=== PATIENT | female | born 1990 | race Caucasian/White ===

== ENCOUNTER 2020-06-09 07:50 | Outpatient (CLI) | payer OTHER ==
[~2020-06-09 07:50] MED LIST: FLONASE16 GM NASAL; GILTUSS TR TAB1 EACH PO; SEPTRA DS PO; ZITHROMAX TRI-500 MG PO; ZYRTEC10 MG PO
== END 2020-06-09 13:26 | disposition home or self-care (01) ==
LOC: LAB 07:50
DX: B34.8 Other viral infections of unspecified site (principal)

== ENCOUNTER 2021-09-05 09:14 | Outpatient (CLI) | payer OTHER | END 2021-09-05 09:18 | disposition home or self-care (01) | LOC: LAB 09:14 | PROVIDERS: ATTEND General Practice | DX: Z20.828 Contact with and (suspected) exposure to other viral communicable diseases (principal) ==

== ENCOUNTER → 2021-11-27 06:19 | Outpatient (CLI) | payer OTHER | END | disposition home or self-care (01) | LOC: LAB 06:19 | PROVIDERS: ATTEND General Practice | DX: E78.5 Hyperlipidemia, unspecified (principal); E55.9 Vitamin D deficiency, unspecified; N39.0 Urinary tract infection, site not specified; R42 Dizziness and giddiness; R10.2 Pelvic and perineal pain; R79.0 Abnormal level of blood mineral; Z00.00 Encounter for general adult medical examination without abnormal findings ==

== ENCOUNTER 2021-12-04 12:35 | Outpatient (CLI) | payer OTHER | END 2021-12-04 13:55 | disposition home or self-care (01) | LOC: SONOGRAMA 12:35 | PROVIDERS: ATTEND General Practice | DX: E03.9 Hypothyroidism, unspecified (principal); E03.1 Congenital hypothyroidism without goiter ==

== ENCOUNTER → 2022-01-09 06:35 | Outpatient (CLI) | payer OTHER | END | disposition home or self-care (01) | LOC: LAB 06:35 | PROVIDERS: ATTEND General Practice | DX: Z20.822 Contact with and (suspected) exposure to COVID-19 (principal) ==

== ENCOUNTER 2022-02-04 09:37 | Outpatient (CLI) | payer OTHER | END 2022-02-04 09:42 | disposition home or self-care (01) | LOC: LAB 09:37 | PROVIDERS: ATTEND Internal Medicine Endocrinology, Diabetes & Metabolism | DX: E03.8 Other specified hypothyroidism (principal) ==

== ENCOUNTER 2022-02-04 11:08 | Outpatient (CLI) | payer OTHER | END 2022-02-04 11:19 | disposition home or self-care (01) | LOC: RAD 11:08 | PROVIDERS: ATTEND General Practice | DX: M54.9 Dorsalgia, unspecified (principal) ==

== ENCOUNTER → 2022-05-08 07:10 | Outpatient (CLI) | payer OTHER | END | disposition home or self-care (01) | LOC: LAB 07:10 | PROVIDERS: ATTEND Internal Medicine Endocrinology, Diabetes & Metabolism | DX: E03.8 Other specified hypothyroidism (principal); E78.00 Pure hypercholesterolemia, unspecified ==

== ENCOUNTER 2022-11-06 10:55 | Outpatient (CLI) | payer OTHER | END 2022-11-06 10:58 | disposition home or self-care (01) | LOC: RAD 10:55 | PROVIDERS: ATTEND General Practice | DX: M25.561 Pain in right knee (principal) ==

== ENCOUNTER 2022-11-08 07:14 | Outpatient (CLI) | payer OTHER | END 2022-11-08 07:16 | disposition home or self-care (01) | LOC: LAB 07:14 | PROVIDERS: ATTEND Internal Medicine Endocrinology, Diabetes & Metabolism | DX: E13.8 Other specified diabetes mellitus with unspecified complications (principal); E78.00 Pure hypercholesterolemia, unspecified ==

== ENCOUNTER 2023-01-13 13:51 | Outpatient (CLI) | payer OTHER | END 2023-01-13 16:20 | disposition home or self-care (01) | LOC: RAD 13:51 | PROVIDERS: ATTEND General Practice | DX: M25.511 Pain in right shoulder (principal) ==

== ENCOUNTER 2023-05-16 08:33 | Outpatient (CLI) | payer OTHER | END 2023-05-16 08:37 | disposition home or self-care (01) | LOC: LAB 08:33 | PROVIDERS: ATTEND Internal Medicine Endocrinology, Diabetes & Metabolism | DX: E03.8 Other specified hypothyroidism (principal); E78.00 Pure hypercholesterolemia, unspecified; E11.65 Type 2 diabetes mellitus with hyperglycemia ==

== ENCOUNTER 2023-11-12 15:13 | Outpatient (CLI) | payer OTHER | END 2023-11-12 15:20 | disposition home or self-care (01) | LOC: RAD 15:13 | PROVIDERS: ATTEND Chiropractor Neurology | DX: M25.571 Pain in right ankle and joints of right foot (principal) ==

== ENCOUNTER 2023-11-14 08:19 | Outpatient (CLI) | payer OTHER ==
[2023-11-14 10:50] LABS: T4 FREE 0.98 NG/ML (0.76-1.46); TSH 1.1 uIU/mL (0.358-3.74)
== END 2023-11-14 08:20 | disposition home or self-care (01) ==
LOC: LAB 08:19
PROVIDERS: ATTEND Internal Medicine Endocrinology, Diabetes & Metabolism
DX: E03.8 Other specified hypothyroidism (principal)

== ENCOUNTER 2024-04-22 14:52 | Outpatient (CLI) | payer OTHER | END 2024-04-22 14:56 | disposition home or self-care (01) | LOC: SONOGRAMA 14:52 | PROVIDERS: ATTEND Internal Medicine Endocrinology, Diabetes & Metabolism | DX: E04.8 Other specified nontoxic goiter (principal) ==

== ENCOUNTER 2024-04-30 09:18 | Outpatient (CLI) | payer OTHER ==
[2024-04-30 12:30] LABS: ALBUMIN 4.1 gm/dL (3.4-5.0); BILIRUBIN TOTAL 0.39 mg/dL (0.3-1.2); CALCIUM 9.5 mg/dL (8.5-10.1); CHOL HDL RATIO 3.3 (0-5.0); CREATININE SERUM 0.79 mg/dL (0.55-1.02); GFR 84.34; GLOBULINA 3.5 G/DL (2.4-3.5); POTASSIUM 5.12 mEq/L (3.5-5.1); T4 FREE 1.04 NG/ML (0.76-1.46); TOTAL PROTEIN 7.6 gm/dL (6.4-8.2); TSH 0.956 uIU/mL (0.358-3.74)
== END 2024-04-30 11:15 | disposition home or self-care (01) ==
LOC: LAB 09:18
PROVIDERS: ATTEND Internal Medicine Endocrinology, Diabetes & Metabolism
DX: E03.8 Other specified hypothyroidism (principal); E78.5 Hyperlipidemia, unspecified

== ENCOUNTER 2024-11-16 06:01 | Outpatient (CLI) | payer OTHER ==
[2024-11-16 07:13] LABS: ALBUMIN 3.8 gm/dL (3.4-5.0); BILIRUBIN TOTAL 0.42 mg/dL (0.3-1.2); CALCIUM 8.8 mg/dL (8.5-10.1); CHOL HDL RATIO 3.2 (0-5.0); CREATININE SERUM 0.84 mg/dL (0.55-1.02); GFR 78.08; GLOBULINA 3.3 G/DL (2.4-3.5); POTASSIUM 4.24 mEq/L (3.5-5.1); T4 FREE 1.05 NG/ML (0.76-1.46); TOTAL PROTEIN 7.1 gm/dL (6.4-8.2); TSH 2.52 uIU/mL (0.358-3.74)
== END 2024-11-16 06:07 | disposition home or self-care (01) ==
LOC: LAB 06:01
PROVIDERS: ATTEND Internal Medicine Endocrinology, Diabetes & Metabolism
DX: E78.5 Hyperlipidemia, unspecified (principal); E03.8 Other specified hypothyroidism

== ENCOUNTER 2025-02-02 14:03 | Emergency (ER) | payer OTHER ==
[~2025-02-02] VITALS: Ht 175.3 cm; Wt 115.7 kg
[2025-02-02] MEDS ORDERED: SYNTHROID50 MCG PO (14:47)
[2025-02-02] MEDS ORDERED: ACETAMINOPHEN 500 MG GEL..CAP PO ONE ×2 (15:45→16:29)
[2025-02-02 17:18] LABS: BASO % 0.7 % (0.1-1.2); EOS # 0.01 (0.04-0.54); EOS % 0.1 % (0.7-7.0); HEMATOCRIT 40.7 % (34.1-44.9); HEMOGLOBIN 13.3 g/dL (11.2-15.7); LYMPH # 1.05 (1.18-3.74); LYMPH % 13.9 % (19.3-53.1); MEAN CORPUSCULAR HEMOGLOBIN 27.8 pg (25.6-32.2); MONO # 0.67 (0.24-0.82); MONO % 8.9 % (4.7-12.5); NEUT # 5.73 (1.56-6.13); NEUT % 76.1 % (34.0-71.1); PLATELET COUNT 346 K/uL (163-369); RED BLOOD COUNT 4.79 M/uL (3.93-5.22); RED CELL DISTRIBUTION WIDTH 13.3 % (11.6-14.4)
[2025-02-02 17:46] LABS: INFLUENZA A AG NEGATIVE (NEGATIVE)
[2025-02-02 17:54] LABS: COVID-19 AG NEGATIVE (NEGATIVE)
[2025-02-02] MEDS ORDERED: TUSSIN DM LIQU118 ML PO (18:11)
== END 2025-02-02 18:21 | disposition home or self-care (01) ==
LOC: ER 16:29
PROVIDERS: General Practice
DX: J00 Acute nasopharyngitis [common cold] (principal); Z20.822 Contact with and (suspected) exposure to COVID-19; E03.8 Other specified hypothyroidism; Z88.6 Allergy status to analgesic agent

== ENCOUNTER 2025-05-25 06:23 | Outpatient (CLI) | payer OTHER ==
[~2025-05-25 06:23] MED LIST changes: +SYNTHROID50 MCG PO; +TUSSIN DM LIQU118 ML PO
[2025-05-25 08:14] LABS: ALT/SGPT 52.0 U/L (12-78); AST/SGOT 25.0 U/L (15-37); BILIRUBIN TOTAL 0.73 mg/dL (0.3-1.2); BUN CREA RATIO 13.0 (7.0-25.0); CHOL HDL RATIO 3.2 (0-5.0); CREATININE SERUM 0.82 mg/dL (0.55-1.02); GFR 80.28; GLOBULINA 3.2 G/DL (2.4-3.5); GLUCOSE FASTING 84.0 mg/dL (65-100); HDL 63.0 mg/dl (40-60); LDL 115.0 mg/dl (0-130); OSMOLALITY SERUM 278.0 MOSM/KG (275-295); T4 FREE 1.03 NG/ML (0.76-1.46); TSH 2.71 uIU/mL (0.358-3.74); VLDL 23.0 (0-39)
== END 2025-05-25 06:33 | disposition home or self-care (01) ==
LOC: LAB 06:23
PROVIDERS: ATTEND Internal Medicine Endocrinology, Diabetes & Metabolism
DX: E03.8 Other specified hypothyroidism (principal); E78.5 Hyperlipidemia, unspecified